=== PATIENT | female | born 1965 | race American Indian/Alaskan Native ===

== ENCOUNTER 2019-04-06 16:26 | Emergency (ER) | payer SELFPAY ==
[2019-04-06 16:34] VITALS: BP 138/75
--- NOTE | 2019-04-06 17:57 | Event Note ---
ED Screening Note Date of service: 04/06/19 Time: 17:54 ED Screening Note: 53 yo female c/o productive cough congestion chills and bodyaches x 3 weeks. Non-smoker with no PMH. This initial assessment/diagnostic orders/clinical plan/treatment(s) is/are subject to change based on patients health status, clinical progression and re- assessment by fellow clinical providers in the ED. Further treatment and workup at subsequent clinical providers discretion. Patient/guardian urged not to elope from the ED as their condition may be serious if not clinically assessed and managed. Initial orders include: CHEST XRAY
--- NOTE | 2019-04-06 20:07 | XRay Report ---
CHEST 2 VIEWS INDICATION / CLINICAL INFORMATION: COUGH. COMPARISON: None available. FINDINGS: SUPPORT DEVICES: None. HEART / MEDIASTINUM: No significant abnormality. LUNGS / PLEURA: Hyperinflation of the lungs No pneumothorax. ADDITIONAL FINDINGS: No significant additional findings. IMPRESSION: Hyperinflation of the lungs without additional abnormality seen Signer Name: Jono Vail MD FACR Signed: 04/06/2019 8:03 PM Workstation Name: [id number]
--- NOTE | 2019-04-06 20:38 | Emergency Department Report ---
Minor Respiratory - HPI Chief Complaint: Upper Respiratory Infection Stated Complaint: FLU SX/CHEST PAIN Time Seen by Provider: 04/06/19 20:28 Other History: 53 yo female c/o productive cough congestion chills and bodyaches x 3 weeks. Non-smoker with no PMH. ED Review of Systems ROS: Stated complaint: FLU SX/CHEST PAIN Other details as noted in HPI ED Past Medical Hx - Past Medical History Previous Medical History?: No - Surgical History Past Surgical History?: Yes Additional Surgical History: myomectomy, right knee - Social History Smoking Status: Never Smoker Substance Use Type: Marijuana - Medications Home Medications: Home Medications Medication Instructions Recorded Confirmed Last Taken Type Benzonatate [Tessalon Perles] 100 mg PO Q8HR #15 capsule 04/06/19 Unknown Rx Fluticasone [Flonase] 1 spray NS QDAY #1 bottle 04/06/19 Unknown Rx Loratadine (Nf) [Claritin (Nf)] 10 mg PO DAILY #15 tablet 04/06/19 Unknown Rx cephALEXin [Keflex] 500 mg PO Q8HR #30 cap 04/06/19 Unknown Rx Minor Respiratory Exam - Exam General: Vital signs noted. No distress. Alert and acting appropriately. HEENT: Yes Moist Mucous Membranes, Yes Frontal Tenderness, Yes Maxillary Tenderness, No Pharyngeal Erythema, No Pharyngeal Exudates, No Rhinorrhea, No Conjuctival Injection Ear: Neither TM Bulge, Neither TM Erythema, Neither EAC Pain, Neither EAC Discharge Neck: Yes Supple, No Adenopathy Lungs: Yes Good Air Exchange, No Wheezes, No Ronchi, No Stridor, No Cough, No Labored Respirations, No Retractions, No Use of Accessory Muscles, No Other Abnormal Lung Sounds Abdomen: Yes Normal Bowel Sounds, No Tenderness, No Peritoneal Signs Skin: No Rash, No Edema Neurologic: Alert and oriented, no deficits. Musculoskeletal: Unremarkable. ED Course Vital Signs 04/06/19 16:33 Temperature 98.7 F Pulse Rate 108 H Respiratory 18 Rate Blood Pressure 138/75 [Right] O2 Sat by Pulse 99 Oximetry ED Medical Decision Making - Radiology Data Radiology results: report reviewed Patient: TIMUR WALKER MR#: [id number] : 1965 Acct:[id number] Age/Sex: 53 / F ADM Date: 04/06/19 Loc: ED Attending Dr: Ordering Physician: JASMINA GARCIA Date of Service: 04/06/19 Procedure(s): XR chest routine 2V Accession Number(s): [id number] cc: JASMINA GARCIA Fluoro Time In Minutes: CHEST 2 VIEWS INDICATION / CLINICAL INFORMATION: COUGH. COMPARISON: None available. FINDINGS: SUPPORT DEVICES: None. HEART / MEDIASTINUM: No significant abnormality. LUNGS / PLEURA: Hyperinflation of the lungs No pneumothorax. ADDITIONAL FINDINGS: No significant additional findings. IMPRESSION: Hyperinflation of the lungs without additional abnormality seen Signer Name: Jono Vail MD FACR Signed: 04/06/2019 8:03 PM Workstation Name: [id number] Transcribed By: MS Dictated By: Jono Vail MD Electronically Authenticated By: Jono Vail MD Signed Date/Time: 04/06/192002 DD/ 01 TD/TT: - Medical Decision Making 53 yo female c/o productive cough congestion chills and bodyaches x 3 weeks. Non-smoker with no PMH. Critical care attestation.: If time is entered above; I have spent that time in minutes in the direct care of this critically ill patient, excluding procedure time. ED Disposition Clinical Impression: URI (upper respiratory infection), Sinus infection Disposition: DC-01 TO HOME OR SELFCARE Is pt being admited?: No Does the pt Need Aspirin: No Condition: Stable Instructions: Sinusitis (ED) Prescriptions: Loratadine (Nf) [Claritin (Nf)] 10 mg PO DAILY #15 tablet Fluticasone [Flonase] 1 spray NS QDAY #1 bottle cephALEXin [Keflex] 500 mg PO Q8HR #30 cap Benzonatate [Tessalon Perles] 100 mg PO Q8HR #15 capsule Referrals: PRIMARY MD SYEDA [Primary Care Provider] - 3-5 Days NASIR MADRID MD [Staff Physician] - 3-5 Days Forms: Work/School Release Form(ED)
== END 2019-04-06 20:40 | disposition home or self-care (01) ==
LOC: ED 16:26
DX: J06.9 Acute upper respiratory infection, unspecified (principal); J01.90 Acute sinusitis, unspecified
CPT/HCPCS: 71046